=== PATIENT | female | born 1950 | race Caucasian/White ===

== ENCOUNTER → 2018-12-28 | Outpatient (CLI) | payer MEDICARE ==
[~2018-12-28] MED LIST: ALPR0.254 PO; ASPI1TAB31 PO; BENA1TAB10 PO; CALC1CAP8 PO; MOVE FREE ULTR1 EACH PO; MV I PO; NAPR220C2 PO; OMEG500C PO; TEMA7.5C PO; TIZA2TAB PO
== END | disposition home or self-care (01) ==
LOC: CFH 10:44
PROVIDERS: ATTEND Nurse Practitioner Family
DX: Z12.31 Encounter for screening mammogram for malignant neoplasm of breast (principal)
CPT/HCPCS: 77063; 77067

== ENCOUNTER → 2021-04-12 | Outpatient (CLI) | payer MEDICARE ==
[~2021-04-12] MED LIST changes: +TIZA-106 PO; -TIZA2TAB PO
== END | disposition home or self-care (01) ==
LOC: CFH 09:17
PROVIDERS: ATTEND Nurse Practitioner Family
DX: Z12.31 Encounter for screening mammogram for malignant neoplasm of breast (principal)
CPT/HCPCS: 77063; 77067